=== PATIENT | male | born 1970 | race Caucasian/White ===

== ENCOUNTER → 2020-09-30 | Outpatient (CLI) | payer BC ==
[~2020-09-30] MED LIST: ALBU8.5H INH; ASPI81TA26 PO; CART120C PO; ELIQ5TAB PO; MAGN400C PO; PRED20TA PO; ZINC1TAB2 PO
--- NOTE | 2020-10-03 09:19 | ECHO ---
DATE OF PROCEDURE: 09/30/2020 Age: 50 Gender: Male Height: 180 cm Weight: 96.2 kg REFERRING PHYSICIAN: Keegan Dejesus M.D. INDICATION: Atrial fibrillation. MEASUREMENTS: 2D Measurements: Aortic root 3.6 cm Intraventricular septum 1.17 cm Posterior wall 1.27 cm Left ventricle diastole 4.4 cm Left atrium 4.1 cm Aortic annulus 2.1 cm Inferior vena cava 1.5 cm Doppler Measurements: No aortic stenosis No aortic regurgitation Aortic valve velocity 136 cm/s Very mild mitral regurgitation Mitral E velocity 78.0 cm/s Mitral A velocity 97.3 cm/s Mitral deceleration time 201 msec Mild tricuspid regurgitation Estimated right ventricular systolic pressure 26-31 mmHg Estimated right atrial pressure 5-10 mmHg No pulmonic regurgitation Pulmonary artery acceleration time 124 msec MITRAL ANNULAR TISSUE DOPPLER E prime septal 6.0 cm/s, E prime lateral 7.0 cm/s DESCRIPTION: Rhythm was sinus with PVCs. Image quality was fair. No pericardial effusion. This was a 2D, M-mode, color flow Doppler, and pulsed wave Doppler examination including mitral annular tissue Doppler. CONCLUSIONS: 1. Borderline concentric left ventricular hypertrophy. Normal regional LV wall motion and wall thickening. Normal LV systolic function. LVEF 60% to 65% by visual estimate. Normal peak systolic longitudinal strain pattern. Grade 1 LV diastolic dysfunction (impaired relaxation filling pattern). 2. Mild left atrial dilatation. 3. Very mild aortic valve sclerosis of a 3-cuspid aortic valve. 4. Otherwise normal appearing echocardiogram Doppler findings. MTDD
== END ==
LOC: M CARPUL 11:59
PROVIDERS: ATTEND Internal Medicine Hematology & Oncology
DX: I26.99 Other pulmonary embolism without acute cor pulmonale (principal)

== ENCOUNTER → 2021-02-14 | Outpatient (CLI) | payer BC ==
[~2021-02-14] MED LIST changes: +METHACHOLINE KIT (J7674) INH ONE
--- NOTE | 2021-02-14 13:19 | REP ---
INDICATION: ABN FINDING OF LUNG. COMPARISON: 07/26/2020, 08/20/2019. TECHNIQUE: CT chest performed without the use of intravenous contrast. Sagittal and coronal reconstruction images are performed. FINDINGS: Lungs: There is no acute infiltrate. There is a calcified granuloma in both lower lobes. A 3 mm nodular density inferiorly in the left costophrenic sulcus is unchanged compared to the prior CT scans. There is mild linear fibro atelectatic change in the right posterior costophrenic sulcus. Mediastinum: There is a calcified paraesophageal lymph node present.. Kaela: No gross adenopathy. Axilla: No gross adenopathy. Pleura: No effusion. Heart: Not enlarged. Thoracic aorta: No aneurysm. Upper abdominal structures: Prior cholecystectomy. Visualized osseous structures: There are degenerative changes of the spine without compression deformity. IMPRESSION: Chronic findings as discussed above. <Electronically signed by Guido Ibanez > 02/14/21 [id number]
--- NOTE | 2021-02-14 15:02 | PFTRPT ---
Site: [facility], [address] [place] [address], [id number] ID: [id number] Name: MONROE PATTON Visit Date: 02/14/2021 Second ID: [id number] Referring Doctor: Judith Romo Reviewing Doctor: David Meehan MD Car Wrecker: Butch MAYFIELD RRT Age: 50 : 1970 Sex: Male Race: Height: 71.00 Inches Weight: 210.00 Lbs BSA: 2.15 Order IDs: [id number] Requested Test(s): <RESP-PFT.PFT> Diagnosis: R06.02 test appear to be valid, although the ATS standard for "end of test" was not met. Pt was given four puffs of albuterol for post bronchodilator. Review Status: Not Reviewed Pre-Bronch Post-Bronch Pred Actual %Pred Actual %Chng SPIROMETRY FVC (L) 5.26 4.93 93 4.84 -1 FEV1 (L) 4.10 4.27 104 4.18 -2 FEV1/FVC (%) 78 87 111 86 FEF 25% (L/sec) 8.06 8.43 104 8.82 4 FEF 50% (L/sec) 5.06 5.86 115 5.47 -6 FEF 75% (L/sec) 1.76 2.49 141 1.89 -24 FEF 25-75% (L/sec) 3.63 5.17 142 4.58 -11 FEF Max (L/sec) 10.11 8.71 86 9.43 8 FIVC (L) 4.61 4.66 1 FIF 50% (L/sec) 5.01 7.25 144 4.12 -43 FIF Max (L/sec) 7.31 6.26 -14 MVV (L/min) 158 136 86 Expiratory Time (sec) 5.62 4.76 -15 Back Extrap Vol (L) 0.17 0.16 -1 Time To FEFmax (sec) 0.112 0.090 -19 LUNG VOLUMES SVC (L) 5.10 5.16 101 IC (L) 3.50 4.01 114 ERV (L) 1.60 1.15 71 TGV (L) 3.66 4.11 112 RV (Pleth) (L) 2.06 2.96 143 TLC (Pleth) (L) 7.16 8.11 113 RV/TLC (Pleth) (%) 29 36 125 DIFFUSION DLCOunc (ml/min/mmHg) 31.44 37.93 120 DLCOcor (ml/min/mmHg) 31.44 36.93 117 DL/VA (ml/min/mmHg/L) 4.39 5.07 115 VA (L) 7.16 7.28 101 BHT (sec) 9.91 IVC (L) 4.98 TLC (SB) (L) 7.43 AIRWAYS RESISTANCE Raw (cmH2O/L/s) 1.45 0.79 54 Gaw (L/s/cmH2O) 1.03 1.27 123 sRaw (cmH2O*s) 4.76 3.22 67 sGaw (1/cmH2O*s) 0.20 0.31 157 BLOOD GASES Hgb (gm/dL) 15.6
== END ==
LOC: M RAD 11:17
PROVIDERS: ATTEND Nurse Practitioner Adult Health
DX: R06.02 Shortness of breath (principal); R91.8 Other nonspecific abnormal finding of lung field; J84.10 Pulmonary fibrosis, unspecified
CPT/HCPCS: 71250; 88738; 94010; 94060; 94726; 94729; J7674

== ENCOUNTER → 2021-03-14 | Outpatient (CLI) | payer BC ==
--- NOTE | 2021-03-14 08:57 | PFTRPT ---
Height: 71.00 Inches Weight: 210.00 Lbs BSA: 2.15 Diagnosis: R06.02 DATE: 03/14/2021 ORDERED BY: Judith Edwards QUALITY: Study of excellent technical quality. PROCEDURE: Under protocol, methacholine was administered. Even after a maximum dose of 25 mg or 188.875 CDUs, no provocation dose ever achieved. IMPRESSION: Negative methacholine challenge study. MTDD
== END ==
LOC: M CARPUL 02-28 14:15
PROVIDERS: ATTEND Nurse Practitioner Adult Health
DX: R06.02 Shortness of breath (principal)
CPT/HCPCS: 94070; 95070; J7674

== ENCOUNTER → 2025-02-02 | Outpatient (REF) | payer OTHER ==
[~2025-02-02] MED LIST changes: +LISI10TA22; -METHACHOLINE KIT (J7674) INH ONE
== END ==
LOC: M LAB REF 16:44
PROVIDERS: ATTEND Registered Nurse
DX: Z95.818 Presence of other cardiac implants and grafts (principal)